=== PATIENT | female | born 1970 | race Hispanic/Latino ===

== ENCOUNTER 2017-11-16 01:52 | Inpatient (IN) | payer MEDICAID, OTHER ==
--- NOTE | 2017-11-16 03:37 | C.PDOC ---
History Of Present Illness 47 year old female is a transfer from [facility] for admission to the psych floor of out facility. Patient has a PMHx of bipolar disorder, patient is currently having suicidal thoughts. Patient was accepted under Dr. Porras as a voluntary admission. Chief Complaint (Nursing): Psychiatric Evaluation History Per: Patient, EMS History/Exam Limitations: no limitations Onset/Duration Of Symptoms: Days Current Symptoms Are (Timing): Still Present Suicide/Self Injury Attempted (Context): None Modifying Factor(s): None Associated Symptoms: Suicidal Thoughts. denies: Depression, Suicidal Plan Recent travel outside of the [facility]: No Additional History Per: Patient Past Medical History Reviewed: Historical Data, Nursing Documentation, Vital Signs Vital Signs: Last Vital Signs Temp 98.2 F 11/16/17 02:02 Pulse 74 11/16/17 02:02 Resp 20 11/16/17 03:30 BP 119/80 11/16/17 02:02 Pulse Ox 98 11/16/17 03:38 - Medical History PMH: Anxiety, Post Traumatic Stress Disorder, Schizophrenia Surgical History: No Surg Hx Family History: States: Unknown Family Hx - Social History Hx Alcohol Use: No Hx Substance Use: Yes - Immunization History Hx Tetanus Toxoid Vaccination: No Hx Influenza Vaccination: No Hx Pneumococcal Vaccination: No Review Of Systems Constitutional: Negative for: Fever, Chills Cardiovascular: Negative for: Chest Pain Respiratory: Negative for: Cough, Shortness of Breath Gastrointestinal: Negative for: Nausea, Vomiting, Abdominal Pain Skin: Negative for: Rash Neurological: Negative for: Weakness, Numbness Psych: Positive for: Suicidal ideation. Negative for: Depression Physical Exam - Physical Exam Appears: Non-toxic, No Acute Distress Skin: Normal Color, Warm, Dry Head: Atraumatic, Normacephalic Eye(s): bilateral: Normal Inspection Nose: No Discharge, No Deformity Oral Mucosa: Moist Neck: Normal ROM, Supple Chest: Symmetrical Cardiovascular: Rhythm Regular, No Murmur Respiratory: Normal Breath Sounds, No Rales, No Rhonchi, No Wheezing Gastrointestinal/Abdominal: Soft, No Tenderness, No Guarding, No Rebound Extremity: Normal ROM, No Tenderness, No Deformity, No Swelling Neurological/Psych: Oriented x3, Normal Speech, Normal Cognition ED Course And Treatment O2 Sat by Pulse Oximetry: 98 (On Ra) Pulse Ox Interpretation: Normal Disposition - Disposition Disposition: HOSPITALIZED Disposition Time: 06:22 Condition: GOOD - Clinical Impression Clinical Impression: Manic bipolar I disorder - Scribe Statement The provider has reviewed the documentation as recorded by the Scribe Salvatore Arnett All medical record entries made by the Ramonaibe were at my direction and personally dictated by me. I have reviewed the chart and agree that the record accurately reflects my personal performance of the history, physical exam, medical decision making, and the department course for this patient. I have also personally directed, reviewed, and agree with the discharge instructions and disposition.
--- NOTE | 2017-11-16 03:47 | PCM.BM ---
<Lauryn Evangelista - Last Filed: 11/16/17 03:45> Treatment Plan Problems - Problems identified on initial assessmt Suicidal Ideations Date Initiated: 11/16/17 Time Initiated: 03:45 Assessment reference: NA Status: Active Treatment assets and liabiliti Patient Assests: cooperative, self-reliant, ADL independent, good support system , negotiates basic needs Patient Liabilities: physical pain, financial problems, substance abuse, medical problems - Milieu Protocol Maintain good personal hygiene: daily Encourage regular showers, other Remind patient to perform daily oral care (prn), other Assist patient to perform ADL's (prn) Conduct patient checks and document Observation sheet: Q15 minutes Maintain personal safety: every shift Monitor environment for contraband/sharps , other Educate patient to report safety concerns to staff (prn) Medication safety: Monitor for expected outcome, potential side effects: every shift, Assess barriers to learning: every shift, Assess readiness for medication education: every shift <Arya Hurtado - Last Filed: 11/19/17 21:13> - Diagnosis (1) Manic bipolar I disorder Status: Acute Interventions: 11/19/17 21:13 * Assess/adjust medications daily and /or as needed * See patient on an individual basis 7x/week to assess level of manic behaviors and stability * Discuss risks, benefits, side effects and alternatives of medications * <Giulia Pettit - Last Filed: 11/20/17 10:14> Family Contact Family involvement: Family/SO is involved Family contact: Patient declines to allow family contact at present - Goals for Treatment Patient goals for treatment: "I want to go home." Discharge/Continuing Care - Education Needs Education Needs: Patient Medication, Patient Coping Skills - Discharge Discharge Criteria: Tolerates medication w/o severe side effects, Reduction of target symptoms Discharge to:: Home - Treatment Team Participation Discussed with Family/SO: No Was Patient/Family/SO present at Treatment Team Meeting: Yes
[2017-11-16] MEDS: Divalproex 500 mg DR Tab PO SCH ×2 (09:06→22:02)
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
[2017-11-17] MEDS: Divalproex 500 mg DR Tab PO SCH ×2 (09:11→21:37)
--- NOTE | 2017-11-17 16:28 | PCM.PYCHPN ---
Psychiatric Progress Note - Psychiatric Progress Note Patient seen today, length of contact: 15 minutes Patient Chief Complaint: "I want to discharge." Problems Identified/Issues Discussed: Pt was seen and evaluated. Chart reviewed and nurse input received. Pt stated that she is compliant with meds and denied. Pt stated that she has lots of worries. Pt reported that she has depression. Currently she denied AVH, but appeared internally preoccupied and responding to stimuli. she signed to 48 hour sign out notice. DSM 5 Symptoms Update: Schizophrenia PTSD OH Medication Change: Yes Medical Record Reviewed: Yes Mental Status Examination - Cognitive Function Orientation: Person, Place, Situation, Time Memory: Intact Attention: Poor Concentration: Poor Association: Loose Fund of Knowledge: WNL Decription of patient's judgement and insights: Limited/Limited - Mood Mood: Depressed, Anxious - Affect Affect: Constricted, Depressed - Speech Speech: Appropriate - Formal Thought Process Formal Thought Process: Hallucinations, Delusions (grandiose ), Circumstantial - Suicidal Ideation Suicidal Ideation: No Plan: denied - Homicidal Ideation Homicidal Ideation: No Plan: denied Goal/Treatment Plan - Goal/Treatment Plan Need for Continued Stay: Discharge may exacerbated symptoms Progress Toward Problem(s) and Goals/Treatment Plan: Continue Haldol for psychosis Increase cogentin 1 mg po BID for EPS Continue Depakote for mood stabilization prn meds Monitor vitals Psychoeducation was provided regarding diagnosis, treatment, medication, benefits, side effects, and alternate choices. Pt amenable with treatment. Encourage individual and group therapy. - Smoking Cessation Smoking Cessation Initiated: Yes
[2017-11-18] MEDS: Divalproex 500 mg DR Tab PO SCH ×2 (09:00→22:57)
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
[2017-11-19] MEDS: Divalproex 500 mg DR Tab PO SCH ×3 (00:22→21:43)
[2017-11-19 05:37] VITALS: RESP 20
[2017-11-19] MEDS ORDERED: Influenza Vaccine 60 mcg/0.5 mL SYR (4YR UP) IM ONE (10:00)
[2017-11-19] MEDS ORDERED: Pneumococcal 23-Valent Vaccine IM ONE (10:00)
--- NOTE | 2017-11-19 10:44 | PCM.PYCHPN ---
Psychiatric Progress Note - Psychiatric Progress Note Patient seen today, length of contact: 15 minutes Patient Chief Complaint: "I need my pain medication" Problems Identified/Issues Discussed: The patient reports that she is anxious because she has not gotten any oxycodone for her back pain. She reports that she is only receiving Motrin and this does nothing for her pain. She reports that she is eating fine. She is having difficulty with sleep, reporting that she woke up at 2 am and did not go back to bed. She reports that the Klonopin does help with anxiety and wants to know if she can get a prescription for it when she leaves. The patient has put in a 48 hour notice and wants to leave as soon as possible. It was also found that the patient has seen at least 5 different Pain doctors to get oxycodone according to the Prescription Drug Monitoring Program. She speaks in a slow soft voice with hesitation in answering questions. She reports improvement in her mood and denies any SI/HI. Medication Change: Yes (increase haldol) Medical Record Reviewed: Yes Mental Status Examination - Cognitive Function Orientation: Person, Place, Situation, Time Memory: Intact Attention: WNL Concentration: Poor Association: WNL Fund of Knowledge: WNL Decription of patient's judgement and insights: poor - Mood Mood: Depressed, Anxious - Affect Affect: Constricted, Depressed - Speech Speech: Soft - Formal Thought Process Formal Thought Process: No Impairment - Suicidal Ideation Suicidal Ideation: No - Homicidal Ideation Homicidal Ideation: No Goal/Treatment Plan - Goal/Treatment Plan Need for Continued Stay: Severe depression anxiety, Discharge may exacerbated symptoms, Severe functional impairment Progress Toward Problem(s) and Goals/Treatment Plan: Bipolar disorder depressed severe -Support and psychoeducation -Attend groups and activities daily -Monitor symptoms -Use CBT -Continue Medications -Klonopin -Buspar -Depakote -Neurontin -Haldol -Atarax PRN -Ativan PRN -Trazadone PRN -Aftercare planning by - Smoking Cessation Smoking Cessation Initiated: Yes
[2017-11-20 06:06] VITALS: BP 102/76; PULSE 96; TEMP 98.2; O2SAT 97
[2017-11-20] MEDS: Divalproex 500 mg DR Tab PO SCH (09:27)
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
== END 2017-11-20 13:43 | disposition home or self-care (01) | DRG 430 ==
LOC: C.ER 01:52 → C.5E 02:33
PROVIDERS: ADMIT Psychiatry & Neurology Psychiatry; ATTEND Psychiatry & Neurology Psychiatry
PROC: GZHZZZZ Group Psychotherapy (ICD-10-PCS; principal; 2017-11-16)
PROC: GZ58ZZZ Individual Psychotherapy, Cognitive-Behavioral (ICD-10-PCS; 2017-11-16)
PROC: GZ56ZZZ Individual Psychotherapy, Supportive (ICD-10-PCS; 2017-11-16)
DX: F31.64 Bipolar disorder, current episode mixed, severe, with psychotic features (principal); R45.851 Suicidal ideations; F43.10 Post-traumatic stress disorder, unspecified; G47.00 Insomnia, unspecified; F17.210 Nicotine dependence, cigarettes, uncomplicated; F41.1 Generalized anxiety disorder